=== PATIENT | male | born 1970 | race Caucasian/White ===

== ENCOUNTER 2023-05-16 07:04 | Emergency (ER) | payer SELFPAY ==
[2023-05-16] MEDS ORDERED: Dicyclomine 20 MG/2 ML VIAL ONE (07:44)
[2023-05-16] MEDS ORDERED: Ketorolac Tromethamine 30 MG (1 mL) VIAL ONE (07:45)
[2023-05-16 07:50] LABS: #Basophils 0.1 thou/uL (0.0-0.2); #Monocytes 0.3 thou/uL (0.11-0.59); #Neutrophils 7.3 thou/uL (1.40-6.50); %Eosinophils 0.4 % (0.0-10.0); %Lymphocytes 20.5 % (21.0-51.0); %Monocytes 3.4 % (0.0-10.0); %Neutrophils 74.6 % (42.0-75.0); Hematocrit 41.8 % (42.0-52.0); Hemoglobin 14.4 g/dL (14.0-18.0); Mean Corpuscular HGB CONC 34.4 g/dL (32.0-36.0); Mean Corpuscular Hemoglobin 33.8 pg (27.0-31.0); Mean Corpuscular Volume 98.1 fl (78.0-98.0); Mean Platelet Volume 6.9 fL (7.4-10.4); Platelet Count 262 10x3/uL (130-400); RBC Distribution Width 11.4 % (11.5-14.5); Red Blood Cell (RBC) Count 4.26 mill/uL (4.70-6.10); White Blood Cell (WBC) Count 9.8 10x3/uL (4.8-10.8)
[2023-05-16 08:03] LABS: Troponin I Less than 0.010 ng/mL (< 0.028)
[2023-05-16 08:07] LABS: ALT (SGPT) 232 U/L (8-55); AST (SGOT) 305 U/L (5-34); Albumin 4.3 g/dL (3.5-5.0); Alkaline Phosphatase 163 U/L (40-110); Anion Gap 18 mmol/L (10-20); BUN (Urea Nitrogen) 10 mg/dL (8.4-25.7); Bilirubin, Total 1.6 mg/dL (0.2-1.2); Calc. Creatinine Clearance 0 mL/min (70-130); Calcium 9.2 mg/dL (7.8-10.44); Carbon Dioxide 23 mmol/L (22-29); Chloride 101 mmol/L (98-107); Estimated GFR 65; Globulin 2.8 g/dL (2.4-3.5); Glucose 192 mg/dL (70-105); Lipase 30 U/L (8-78); Potassium 4.5 mmol/L (3.5-5.1); Protein, Total 7.1 g/dL (6.0-8.3); Sodium 137 mmol/L (136-145)
[2023-05-16] MEDS ORDERED: Sodium Chloride 0.9% 2,000 ML ONE (08:17)
[2023-05-16] MEDS ORDERED: Sodium Chloride 0.9% 500 ML ONE (08:17)
[2023-05-16] MEDS ORDERED: Iopamidol 370 76% 100 ML VIAL ONE (09:00)
[2023-05-16 10:47] LABS: Lactic Acid 1.6 mmol/L (0.5-2.2)
== END 2023-05-16 11:05 | disposition short-term general hospital (02) ==
LOC: NAV ERS 07:04
DX: E86.0 Dehydration (principal); R10.11 Right upper quadrant pain; R10.811 Right upper quadrant abdominal tenderness; F17.210 Nicotine dependence, cigarettes, uncomplicated
CPT/HCPCS: 36415; 74177; 80053; 83605; 83690; 84484; 85025; 93005; 96361; 96372; 96374; J1885; J7030; J7050; Q9967